=== PATIENT | female | born 2000 | race African-American/Black ===

== ENCOUNTER 2023-01-30 13:43 | Emergency (ER) | payer BC, MEDICAID ==
[~2023-01-30] VITALS: Ht 165.1 cm; Wt 69.0 kg
[2023-01-30 13:58] VITALS: O2SAT 100
[2023-01-30 16:29] VITALS: BP 118/80; PULSE 83; RESP 16; TEMP 98.6
== END 2023-01-30 16:31 | disposition home or self-care (01) ==
LOC: ER 14:13
DX: M25.562 Pain in left knee (principal); V49.49XA Driver injured in collision with other motor vehicles in traffic accident, initial encounter; Y93.89 Activity, other specified; Y92.89 Other specified places as the place of occurrence of the external cause; Y99.8 Other external cause status
CPT/HCPCS: 73562; 81025; 99283